=== PATIENT | male | born 1980 | race African-American/Black ===

== ENCOUNTER 2018-09-21 06:47 | Emergency (ER) | payer MEDICARE, OTHER, MEDICAID ==
[~2018-09-21] VITALS: Ht 162.6 cm; Wt 127.0 kg
[2018-09-21] MEDS ORDERED: GLIPIZIDE 10 MG10 MG PO (06:57)
[2018-09-21] MEDS ORDERED: LASIX 20 MG TAB20 MG PO (06:57)
[2018-09-21] MEDS ORDERED: VITAMIN C500 MG PO (06:57)
[2018-09-21] MEDS ORDERED: [UNRECOGNIZED DRUG - REMARK] (06:58)
[2018-09-21 07:18] LABS: ABSOLUTE BASOPHILS 0.1 thou/uL (0.0-0.2); ABSOLUTE EOSINOPHILS 0.4 thou/uL (0.0-0.7); ABSOLUTE LYMPHOCYTES 2.7 thou/uL (0.8-5.3); ABSOLUTE MONOCYTES 0.7 thou/uL (0.0-1.2); ABSOLUTE NEUTROPHILS 3.2 thou/uL (1.6-8.1); BASOPHILS 1.1 %; EOSINOPHILS 6.4 %; HEMATOCRIT 35.1 % (42.0-52.0); HEMOGLOBIN 11.6 gm/dL (14.0-18.0); MCH 30.6 pg (26.0-34.0); MCHC 33.1 g/dL (28.0-37.0); MCV 92.7 fL (80.0-100.0); MONOCYTES 9.6 %; MPV 7.5 fl. (7.2-11.1); NUCLEATED RBCS 0 /100WBC; PLATELET COUNT* 240 thou/uL (150-400); POLYS 44.9 %; RBC 3.79 mil/uL (4.50-6.00); RDW-CV 14.8 % (10.5-14.5); WBC 7.1 thou/uL (4.0-11.0)
[2018-09-21 07:33] LABS: ANION GAP 9 mmol/L (7-16); BUN 60 mg/dL (7-18); CALCIUM 7.6 mg/dL (8.5-10.1); CHLORIDE 102 mmol/L (98-107); CO2 29 mmol/L (21-32); CREATININE 10.4 mg/dL (0.6-1.3); GLUCOSE 112 mg/dL (70-99); SODIUM 140 mmol/L (136-145); TROPONIN-I LEVEL <0.06 ng/mL (<0.06)
[2018-09-21 07:34] LABS: ALBUMIN 3.1 g/dL (3.4-5.0); ALKALINE PHOSPHATASE 62 U/L (46-116); LIPASE 263 U/L (73-393); MAGNESIUM 2.2 mg/dL (1.8-2.4); NT-PRO BRAIN NAT PEPTIDE 207 pg/mL (<300); SGOT 8 U/L (15-37); SGPT 20 U/L (30-65); TOTAL BILIRUBIN 0.3 mg/dL (<0.1-1.0); TOTAL PROTEIN 7.4 g/dL (6.4-8.2)
[2018-09-21] MEDS ORDERED: VENTOLIN HFA 1818 GM INH (08:38)
[2018-09-21 08:44] VITALS: BP 104/81
--- NOTE | 2018-09-21 15:08 | EKG ---
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
== END 2018-09-21 08:46 | disposition home or self-care (01) ==
LOC: M.ERS 06:47
PROVIDERS: Emergency Medicine Emergency Medical Services
DX: J40 Bronchitis, not specified as acute or chronic (principal); E11.22 Type 2 diabetes mellitus with diabetic chronic kidney disease; N18.9 Chronic kidney disease, unspecified; Z99.2 Dependence on renal dialysis

== ENCOUNTER 2018-10-26 19:55 | Emergency (ER) | payer MEDICARE, OTHER, MEDICAID ==
[~2018-10-26] VITALS: Ht 271.8 cm; Wt 131.5 kg
[~2018-10-26 19:55] MED LIST: GLIPIZIDE 10 MG10 MG PO; LASIX 20 MG TAB20 MG PO; VENTOLIN HFA 1818 GM INH; VITAMIN C500 MG PO; [UNRECOGNIZED DRUG - REMARK]
[2018-10-26 20:07] VITALS: BP 163/76
[2018-10-26] MEDS ORDERED: TOBRADEX EYE O3.5 GM OPHTHALMIC (20:09)
== END 2018-10-26 20:24 | disposition home or self-care (01) ==
LOC: M.ERS 19:55
DX: H00.012 Hordeolum externum right lower eyelid (principal); H00.014 Hordeolum externum left upper eyelid; E11.9 Type 2 diabetes mellitus without complications; I10 Essential (primary) hypertension; Z99.2 Dependence on renal dialysis

== ENCOUNTER 2019-06-28 20:43 | Emergency (ER) | payer MEDICARE, OTHER, MEDICAID ==
[~2019-06-28] VITALS: Ht 162.6 cm; Wt 122.5 kg
[~2019-06-28 20:43] MED LIST changes: +TOBRADEX EYE O3.5 GM OPHTHALMIC
[2019-06-28] MEDS ORDERED: FLONASE 0.05%50 MCG NARES (21:02)
[2019-06-28] MEDS ORDERED: AMOXICILLIN875 MG PO (21:02)
[2019-06-28 21:18] VITALS: BP 118/77
== END 2019-06-28 21:18 | disposition home or self-care (01) ==
LOC: M.ERS 20:43
DX: H66.91 Otitis media, unspecified, right ear (principal); I10 Essential (primary) hypertension; E11.9 Type 2 diabetes mellitus without complications; Z99.2 Dependence on renal dialysis

== ENCOUNTER 2020-09-16 20:50 | Emergency (ER) | payer OTHER, MEDICAID ==
[~2020-09-16] VITALS: Ht 160 cm; Wt 117.9 kg
[~2020-09-16 20:50] MED LIST changes: +AMOXICILLIN875 MG PO; +FLONASE 0.05%50 MCG NARES
[2020-09-16] MEDS ORDERED: RENAL VITAMIN0.8 MG PO (21:11)
[2020-09-16] MEDS ORDERED: PERCOCET 5-3251 EACH PO (21:42)
[2020-09-16 21:49] VITALS: BP 142/70
== END 2020-09-16 21:50 | disposition home or self-care (01) ==
LOC: M.ERS 20:50
DX: G89.18 Other acute postprocedural pain (principal); M79.602 Pain in left arm; I13.10 Hypertensive heart and chronic kidney disease without heart failure, with stage 1 through stage 4 chronic kidney disease, or unspecified chronic kidney disease; E11.22 Type 2 diabetes mellitus with diabetic chronic kidney disease; N18.9 Chronic kidney disease, unspecified; Z99.2 Dependence on renal dialysis; Z91.018 Allergy to other foods

== ENCOUNTER 2021-03-03 22:11 | Emergency (ER) | payer OTHER, MEDICAID ==
[~2021-03-03] VITALS: Ht 165.1 cm; Wt 113.4 kg
[~2021-03-03 22:11] MED LIST changes: +PERCOCET 5-3251 EACH PO; +RENAL VITAMIN0.8 MG PO
[2021-03-03 23:17] VITALS: BP 119/68
== END 2021-03-03 23:17 | disposition left against medical advice (07) ==
LOC: M.ERS 22:11
DX: Z53.21 Procedure and treatment not carried out due to patient leaving prior to being seen by health care provider (principal)